=== PATIENT | male | born 1950 ===

== ENCOUNTER 2016-09-02 08:47 | Day surgery (SDC) | payer MEDICARE ==
[2016-09-02 10:13] VITALS: BMI 25.3
[2016-09-02 10:27] VITALS: TEMP 98
[2016-09-02] MEDS ORDERED: Propofol 10 mg/ml Inj (20 ML) ONE (13:02)
[2016-09-02 13:43] VITALS: O2SAT 100
[2016-09-02 13:57] VITALS: PULSE 58; RESP 15
[2016-09-02 14:26] VITALS: BP 125/93
== END 2016-09-02 14:23 | disposition home or self-care (01) ==
LOC: C.ENDO 08:47
PROVIDERS: ATTEND Internal Medicine Gastroenterology
DX: K64.8 Other hemorrhoids (principal)
CPT/HCPCS: 45378; J2704

== ENCOUNTER 2017-02-18 13:54 | Inpatient (IN) | payer MEDICARE ==
[2017-02-18 13:56] VITALS: BMI 25.8
[2017-02-18] MEDS ORDERED: cefTRIAXone IV 1 gm in Dextros 50 ML IVPB STA (15:44)
--- NOTE | 2017-02-18 15:51 | C.PDOC ---
History Of Present Illness Pt went for pre-op testing for elective hernia repair today. He was sent to the ED due to abnormal CXR. Time Seen by Provider: 02/18/17 14:50 Chief Complaint (Nursing): Cough, Cold, Congestion History Per: Patient Onset/Duration Of Symptoms: Days (3) Current Symptoms Are (Timing): Still Present Associated Symptoms: Sore Throat, Cough, Sputum, Nasal Congestion Severity: Moderate Additional History Per: Prior Records Past Medical History Reviewed: Historical Data, Nursing Documentation, Vital Signs Vital Signs: Last Vital Signs Temp 98.3 F 02/18/17 14:11 Pulse 81 02/18/17 14:11 Resp 16 02/18/17 14:11 BP 162/86 H 02/18/17 14:11 Pulse Ox 97 02/18/17 14:11 - Medical History PMH: Hypercholesterolemia, Hyperlipidemia (not on meds) Surgical History: Cholecystectomy, Endoscopy Family History: States: Unknown Family Hx - Social History Hx Tobacco Use: No Hx Alcohol Use: No Hx Substance Use: No - Immunization History Hx Tetanus Toxoid Vaccination: No Hx Influenza Vaccination: No Hx Pneumococcal Vaccination: No Review Of Systems Except As Marked, All Systems Reviewed And Found Negative. Constitutional: Negative for: Fever Respiratory: Positive for: Cough (3 days), Shortness of Breath (for years). Negative for: Hemoptysis Gastrointestinal: Negative for: Vomiting Musculoskeletal: Negative for: Neck Pain Skin: Negative for: Rash Neurological: Negative for: Weakness, Numbness Physical Exam - Physical Exam Appears: Non-toxic, No Acute Distress Skin: Normal Color, Warm, Dry, No Rash Head: Atraumatic, Normacephalic Eye(s): bilateral: Normal Inspection, PERRL, EOMI Neck: Normal ROM, Supple Cardiovascular: Rhythm Regular Respiratory: No Accessory Muscle Use, Rhonchi (right), Other (Bronchial breath sounds on left) Gastrointestinal/Abdominal: Soft, No Tenderness Back: No CVA Tenderness Extremity: Normal ROM Neurological/Psych: Oriented x3, Normal Speech, Normal Cognition, Normal Motor, Normal Sensation ED Course And Treatment O2 Sat by Pulse Oximetry: 97 Pulse Ox Interpretation: Normal - Radiology CXR: Viewed By Me, Read By Radiologist CXR Interpretation: Yes: Other (No residual pneumatized lung in left hill thorax. Please correlate with any prior surgical history. Cannot exclude complete atelectasis of left lung. No right-sided pulmonary infiltrate or pleural effusion.) Disposition Discussed With : Corie Chung Comment: She accepted pt on hospitalist service. Doctor Will See Patient In The: Hospital Counseled Patient/Family Regarding: Studies Performed, Diagnosis - Disposition Disposition: HOSPITALIZED Disposition Time: 15:55 Condition: STABLE - Clinical Impression Clinical Impression: Atelectasis of left lung, Lung density on x-ray
--- NOTE | 2017-02-18 17:00 | CT ---
CT chest without IV contrast Indication: Left lung complete atelectasis on CXR Technique: Contiguous axial images were obtained through the chest without intravenous contrast enhancement. Sagittal and coronal reconstructions were generated and reviewed. This CT exam was performed using 1 or more of the falling dose reduction techniques: Automated exposure control, adjustment of the MAA and/or kV according to patient size, and/or use of iterative reconstruction technique. Radiation dose (DLP): 350.25 MGy-cm. Comparison: Chest x-ray performed 02/18/17 Findings: Visualized portions of the inferior thyroid gland appear unremarkable. The unenhanced mediastinal and hilar vascular structures appear grossly unremarkable. The heart appears within normal limits of size. Tiny calcified mediastinal nodes. Dilated pulmonary arterial branches are noted proximally. Dilated main pulmonary artery measures approximately 4.4 cm which may correlate with pulmonary arterial hypertension. Correlate clinically. Mediastinal shift to the left. The patient is status post incomplete pneumonectomy. The left mainstem bronchus connects to small residual collapsed lung. Right upper lobe fibrous scarring evident. No pleural effusion. No pneumothorax. Numerous right-sided calcified granulomas. Limited visualization of the noncontrast upper abdomen demonstrates cholecystectomy clips. Punctate splenic calcifications, likely granulomas. Small hiatal hernia. Degenerative changes. Impression: Mediastinal shift to the left. The patient is status post incomplete pneumonectomy. The left mainstem bronchus connects to small residual collapsed lung. Right upper lobe fibrous scarring evident. Dilated pulmonary arterial branches are noted proximally. Dilated main pulmonary artery measures approximately 4.4 cm which may correlate with pulmonary arterial hypertension. Correlate clinically. Evidence of prior granulomatous infection.
[2017-02-18] MEDS ORDERED: Sodium Chloride 0.9% 1,000 ML IV SCH (17:45)
--- NOTE | 2017-02-18 17:46 | CP.PCM.HP ---
<Vickey Tariq - Last Filed: 02/18/17 22:29> Meds Allergies/Adverse Reactions: Allergies Allergy/AdvReac Type Severity Reaction Status Date / Time No Known Allergies Allergy Verified 09/02/16 10:08 Results - Vital Signs Recent Vital Signs: Last Vital Signs Temp 98.8 F 02/18/17 21:22 Pulse 78 02/18/17 21:22 Resp 20 02/18/17 21:22 BP 169/89 H 02/18/17 21:22 Pulse Ox 97 02/18/17 21:22 - Labs Labs: Laboratory Results - last 24 hr 02/18/17 02/18/17 15:21 15:23 PT 11.1 INR 1.0 APTT 28 Influenza Typ A,B (EIA) Negative for flu a/b Attending/Attestation - Attestation I have personally seen and examined this patient.: Yes I have fully participated in the care of the patient.: Yes I have reviewed all pertinent clinical information: Yes Notes (Text): This is a 66 years old male was brought in for evaluation of abnormal chest x ray.The chest x ray was done today for pre op evaluation for hernia repair.He denies chest pain,no shortness of breath.Has cough with clear sputum last 3 days.No fever.Has exertional dyspnea for many years. No recent changes in his breathing. He was told that his left lung doesn't oxygenate due a rare condition by his physician.His pulmonary physician is Dr Rodrick Caputo. He doedn't remember having a recent chest x ray .He denies using oxygen at home. Patient was sitting comfortable during examination.Saturating 99% in room air.Vitals stable.His trachea is slightly shifted to left.Has left sided bronchial breathing. Right lung has no rhonchi ,no wheezing.Abdomen soft and nontender.He is alert oriented X3. Patient's CT scan report noted.Case was discussed with Dr Carmichael Patient left lung atlectasis is likely chronic Message left to his pulmonary physician to discuss. We will admit him for observation /Tele observation I will start him on Zithromax to cover possible community acquired respiratory infection continue his home meds D/W Resident 02/18/17 22:12 <Cheryl Aguilar - Last Filed: 02/19/17 07:27> History of Present Illness - History of Present Illness History of Present Illness: CC: HPI: 66 year old male presented to ED for pre-op, for hernia repair scheduled for next week. Patient complained of cough for three days with no fever, but stated that the cough is chronic and gets worse when the weather changes. It is a productive cough with clear phlegm. Patient also complained of shortness of breath on exertion and intermittent headaches. Patient denied chest pain, palpitations, fever, chills, weight changes. 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 Jacey Vega Doctor Dr. 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.) - HEMATOLOGICAL/ONCOLOGICAL Hx Blood Transfusions: No - MUSCULOSKELETAL/RHEUMATOLOGICAL Hx Falls: No Hx Fractures: No - GASTROINTESTINAL Hx Gastrointestinal Disorders: No - PSYCHIATRIC Hx Substance Use: No - SURGICAL HISTORY Hx Cholecystectomy: Yes - ANESTHESIA Hx Anesthesia: Yes Hx Anesthesia Reactions: No Hx Malignant Hyperthermia: No Physical Exam - Head Exam Head Exam: ATRAUMATIC, NORMAL INSPECTION, NORMOCEPHALIC - Eye Exam Eye Exam: absent: Conjunctival injection, EOMI, Normal appearance, Periorbital swelling, Periorbital tenderness, Scleral icterus Additional comments: patient is blind in left eye - ENT Exam ENT Exam: Mucous Membranes Moist - Neck Exam Neck exam: Positive for: Full Rom. Negative for: Tenderness, Thyromegaly - Respiratory Exam Respiratory Exam: Decreased Breath Sounds (decreased breath sounds on left side) , NORMAL BREATHING PATTERN. absent: Accessory Muscle Use, Respiratory Distress Additional comments: no ronchi or wheezing of right lung. - Cardiovascular Exam Cardiovascular Exam: REGULAR RHYTHM, +S1, +S2. absent: Bradycardia, Tachycardia - GI/Abdominal Exam GI & Abdominal Exam: Soft. absent: Tenderness - Rectal Exam Rectal Exam: NORMAL INSPECTION - Extremities Exam Extremities exam: Positive for: full ROM, normal inspection. Negative for: pedal edema - Neurological Exam Neurological exam: CN II-XII Intact, Normal Gait, Oriented x3 - Psychiatric Exam Psychiatric exam: Normal Affect, Normal Mood - Skin Skin Exam: Dry, Normal Color, Warm Results - Vital Signs Recent Vital Signs: Last Vital Signs Temp 98.3 F 02/18/17 14:11 Pulse 83 02/18/17 17:37 Resp 18 02/18/17 17:37 BP 137/89 02/18/17 17:37 Pulse Ox 99 02/18/17 17:37 - Labs Labs: Laboratory Results - last 24 hr 02/18/17 02/18/17 15:21 15:23 PT 11.1 INR 1.0 APTT 28 Influenza Typ A,B (EIA) Negative for flu a/b Assessment & Plan - Assessment and Plan (Free Text) Assessment: Hernia Repair, 02/21 observation, telemetry BPH? Flomax 1mg POQD SOB, severe atelectasis of Left lung Fluticasone/Bjorn IH BID CT chest: severe atelectasis of left lung Pulm consult: Dr. Carmichael Arthritis Mobic 15mg POQD, held Prophylaxis GI Prophylaxis: Protonix 40mg POQD SCDs Pain: Tylenol 650mg POQ6H PRN Nausea Reglan 10mg IVP Q6H PRN Zofran 4mg IVP Q6H PRN Diet: heart Healthy diet discussed with Dr. Tariq - Date & Time Date: 02/18/17 Time: 19:48
[2017-02-18] MEDS ORDERED: Fluticasone-Salmeterol 250-50mcg Diskus INH SCH (20:00)
[2017-02-18 21:24] VITALS: RESP 20
--- NOTE | 2017-02-18 22:01 | CP.PCM.HP ---
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.) - HEMATOLOGICAL/ONCOLOGICAL Hx Blood Transfusions: No - MUSCULOSKELETAL/RHEUMATOLOGICAL Hx Falls: No Hx Fractures: No - GASTROINTESTINAL Hx Gastrointestinal Disorders: No - PSYCHIATRIC Hx Substance Use: No - SURGICAL HISTORY Hx Cholecystectomy: Yes - ANESTHESIA Hx Anesthesia: Yes Hx Anesthesia Reactions: No Hx Malignant Hyperthermia: No Meds Allergies/Adverse Reactions: Allergies Allergy/AdvReac Type Severity Reaction Status Date / Time No Known Allergies Allergy Verified 09/02/16 10:08 Results - Vital Signs Recent Vital Signs: Last Vital Signs Temp 98.8 F 02/18/17 21:22 Pulse 78 02/18/17 21:22 Resp 20 02/18/17 21:22 BP 169/89 H 02/18/17 21:22 Pulse Ox 97 02/18/17 21:22 - Labs Labs: Laboratory Results - last 24 hr 02/18/17 02/18/17 15:21 15:23 PT 11.1 INR 1.0 APTT 28 Influenza Typ A,B (EIA) Negative for flu a/b
[2017-02-18] MEDS ORDERED: Azithromycin 500mg/250ML NS 500 MG/250 ML BAG IVPB SCH (22:15)
[2017-02-19 08:30] LABS: BASO % 0.2 % (0.0-2.0); EOS # 0.2 K/uL (0.0-0.7); EOS % 2.8 % (0.0-4.0); HEMATOCRIT 38.8 % (35.0-51.0); LYMPH # 1.8 K/uL (1.0-4.3); LYMPH % 31.9 % (20.0-40.0); MEAN CELL VOLUME 86.8 fL (80.0-94.0); MEAN CORPUSCULAR HEMOGLOBIN 29.2 pg (27.0-31.0); MEAN CORPUSCULAR HGB CONC 33.7 g/dL (33.0-37.0); MONO # 0.8 K/uL (0.0-0.8); NRBC % 0.1 % (0.0-2.0); RED CELL DISTRIBUTION WIDTH 13.6 % (11.5-14.5); WHITE BLOOD COUNT 5.6 K/uL (4.8-10.8)
[2017-02-19 08:39] LABS: ALB/GLOB RATIO 1.3 (1.0-2.1); ALKALINE PHOSPHATASE 67 U/L (38-126); ALT/SGPT 48 U/L (21-72); AST/SGOT 30 U/L (17-59); BLOOD UREA NITROGEN 19 mg/dL (9-20); CALCIUM 8.2 mg/dl (8.6-10.4); CARBON DIOXIDE 31 mmol/L (22-30); CHLORIDE 102 mmol/L (98-107); CHOLESTEROL 185 mg/dL (0-199); GFR AFRICAN-AMERICAN > 60; GLUCOSE,RANDOM 92 mg/dL (75-110); POTASSIUM 4.2 mmol/L (3.6-5.2); SODIUM 139 mmol/L (132-148); TOTAL PROTEIN 6.4 g/dL (6.3-8.3)
[2017-02-19 09:36] VITALS: BP 151/88; PULSE 69; TEMP 97.9; O2SAT 98
[2017-02-19] MEDS ORDERED: Pantoprazole 40 mg EC Tab PO SCH (10:00)
[2017-02-19] MEDS ORDERED: Home Med 1 UNIT (Meloxicam [Mobic] 15 MG) PO SCH (10:00)
--- NOTE | 2017-02-19 15:37 | CP.PCM.DIS ---
Provider - Provider Date of Admission: 02/18/17 18:06 Attending physician: Vickey Tariq MD Primary care physician: Pulmonary - Dr. Mensah Surgery - Dr. Davidson Consults: Pulmonary - Dr. Carmichael Time Spent in preparation of Discharge (in minutes): 35 Diagnosis - Discharge Diagnosis (1) Atelectasis of left lung Status: Acute Comment: 02/[address] - mediastinal shift to the left. s/p incomplete pneumonectomy. left mainstem bronchus connects to small residual collapsed lung. RUL fibrous scarring evident. Dilated pulmonary arterial branches are noted proximally. Dilated main pulmonary artery measures approximately 4.4cm. Evidence of prior granulomatous infection (please see full report). Dr. Tariq spoke with Dr. Mensah, patient's crab meat processor, who says patient likely has chronic pulmonary problems and will need PFT outpatient before hernia repair surgery. Patient is aware. (2) Hernia Status: Acute Comment: postpone surgery until after PFTs (3) Obstructive uropathy Status: Acute Comment: Continue Flomax 0.4mg PO daily (4) Arthritis Status: Acute Comment: Use Mobic PRN Hospital Course - Lab Results Lab Results: Most Recent Lab Values WBC 5.6 K/uL (4.8-10.8) 02/19/17 08:12 RBC 4.46 Mil/uL (4.40-5.90) 02/19/17 08:12 Hgb 13.1 g/dL (12.0-18.0) 02/19/17 08:12 Hct 38.8 % (35.0-51.0) 02/19/17 08:12 MCV 86.8 fL (80.0-94.0) 02/19/17 08:12 MCH 29.2 pg (27.0-31.0) 02/19/17 08:12 MCHC 33.7 g/dL (33.0-37.0) 02/19/17 08:12 RDW 13.6 % (11.5-14.5) 02/19/17 08:12 Plt Count 241 K/uL (130-400) 02/19/17 08:12 MPV 8.0 fL (7.2-11.7) 02/19/17 08:12 Neut % (Auto) 51.1 % (50.0-75.0) 02/19/17 08:12 Lymph % (Auto) 31.9 % (20.0-40.0) 02/19/17 08:12 [place] % (Auto) 14.0 % (0.0-10.0) H 02/19/17 08:12 Eos % (Auto) 2.8 % (0.0-4.0) 02/19/17 08:12 Baso % (Auto) 0.2 % (0.0-2.0) 02/19/17 08:12 Neut # 2.8 K/uL (1.8-7.0) 02/19/17 08:12 Lymph # 1.8 K/uL (1.0-4.3) 02/19/17 08:12 [place] # 0.8 K/uL (0.0-0.8) 02/19/17 08:12 Eos # 0.2 K/uL (0.0-0.7) 02/19/17 08:12 Baso # 0.0 K/uL (0.0-0.2) 02/19/17 08:12 PT 11.1 SECONDS (9.7-12.2) 02/18/17 15:21 INR 1.0 02/18/17 15:21 APTT 28 SECONDS (21-34) 02/18/17 15:21 Sodium 139 mmol/L (132-148) 02/19/17 08:12 Potassium 4.2 mmol/L (3.6-5.2) 02/19/17 08:12 Chloride 102 mmol/L (98-107) 02/19/17 08:12 Carbon Dioxide 31 mmol/L (22-30) H 02/19/17 08:12 Anion Gap 10 (10-20) 02/19/17 08:12 BUN 19 mg/dL (9-20) 02/19/17 08:12 Creatinine 0.8 mg/dL (0.8-1.5) 02/19/17 08:12 Est GFR ( Amer) > 60 02/19/17 08:12 Est GFR (Non-Af Amer) > 60 02/19/17 08:12 Random Glucose 92 mg/dL (75-110) 02/19/17 08:12 Calcium 8.2 mg/dl (8.6-10.4) L 02/19/17 08:12 Total Bilirubin 1.0 mg/dL (0.2-1.3) 02/19/17 08:12 AST 30 U/L (17-59) 02/19/17 08:12 ALT 48 U/L (21-72) 02/19/17 08:12 Alkaline Phosphatase 67 U/L (38-126) 02/19/17 08:12 NT-Pro-B Natriuret Pep 103 pg/mL (0-900) 02/19/17 08:12 Total Protein 6.4 g/dL (6.3-8.3) 02/19/17 08:12 Albumin 3.6 g/dL (3.5-5.0) 02/19/17 08:12 Globulin 2.8 gm/dL (2.2-3.9) 02/19/17 08:12 Albumin/Globulin Ratio 1.3 (1.0-2.1) 02/19/17 08:12 Triglycerides 123 mg/dL (0-149) 02/19/17 08:12 Cholesterol 185 mg/dL (0-199) 02/19/17 08:12 LDL Cholesterol Direct 116 mg/dL (0-129) 02/19/17 08:12 HDL Cholesterol 37 mg/dL (30-70) 02/19/17 08:12 Influenza Typ A,B (EIA) Negative for flu a/b (NEGATIVE) 02/18/17 15:23 - Hospital Course Hospital Course: On admission: 66 year old male presented to ED for pre-op, for hernia repair scheduled for next week. Patient complained of cough for three days with no fever, but stated that the cough is chronic and gets worse when the weather changes. It is a productive cough with clear phlegm. Patient also complained of shortness of breath on exertion and intermittent headaches. Patient denied chest pain, palpitations, fever, chills, weight changes. 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 Jacey Vega Doctor Dr. Mensah [phone] Hospital course: Patient worked up for SOB. Chest CT showed mediastinal shift to the left. s/p incomplete pneumonectomy. left mainstem bronchus connects to small residual collapsed lung. RUL fibrous scarring evident. Dilated pulmonary arterial branches are noted proximally. Dilated main pulmonary artery measures approximately 4.4cm. Evidence of prior granulomatous infection (please see full report). Dr. Tariq spoke with Dr. Mensah, patient's crab meat processor, who says patient likely has chronic pulmonary problems (this is also what Dr. Carmichael, the in-house crab meat processor said) and will need PFTs outpatient before hernia repair surgery. Patient is aware. Patient should continue use of Breo and follow up with Dr. Mensah. Discharge Exam - Head Exam Head Exam: ATRAUMATIC, NORMAL INSPECTION, NORMOCEPHALIC - Eye Exam Eye Exam: EOMI - ENT Exam ENT Exam: Mucous Membranes Moist - Respiratory Exam Respiratory Exam: Rhonchi, NORMAL BREATHING PATTERN. absent: Accessory Muscle Use, Chest Wall Tenderness, Respiratory Distress - Cardiovascular Exam Cardiovascular Exam: REGULAR RHYTHM, +S1, +S2. absent: Gallop, Rubs, Systolic Murmur - GI/Abdominal Exam GI & Abdominal Exam: Normal Bowel Sounds, Soft. absent: Distended, Firm, Tenderness - Extremities Exam Extremities exam: normal capillary refill - Neurological Exam Neurological exam: Alert, CN II-XII Intact, Oriented x3 - Psychiatric Exam Psychiatric exam: Normal Affect, Normal Mood - Skin Skin Exam: Normal Color, Warm Discharge Plan - Discharge Medications Prescriptions: Azithromycin [Zithromax] 500 mg PO DAILY #4 tab Fluticasone/Vilanterol [Breo Ellipta 100-25 Mcg INH] 1 appl IH BID #1 blst.w.dev Tamsulosin HCl [Flomax] 1 cap PO BID #30 cap.er.24h - Follow Up Plan Condition: STABLE Disposition: HOME/ ROUTINE Instructions: Atelectasis (DC) Additional Instructions: Patient to be discharged home per Dr. Bhavana Tariq. Patient should resume all home medications AND take a newly prescribed antibiotic, Zithromax 500mg by mouth once a day for 4 days. Patient should make an appointment and follow up with Dr. Mensah, crab meat processor, next week. Patient should not get surgery for the hernia next week. Patient will need further testing of his lungs with Dr. Mensah before surgery. Patient should return to ED immediately if symptoms return or worsen. Google translate to mauritanian: El paciente ser dado de darlene por el Dr. Bhavana Tariq. El paciente debe reanudar todos los medicamentos del hogar Y william un antibitico recientemente recetado, Zithromax 500mg por va oral sobeida vez al da jose 4 stallings. El paciente debe hacer sobeida steph y hacer un seguimiento con el Dr. Mensah, neumlogo, la prxima semana. El paciente no debe someterse a sobeida ciruga para la hernia la prxima semana. El paciente necesitar ms pruebas de asa pulmones con el Dr. Mensah antes de la ciruga. El paciente debe regresar a la brandi de urgencias inmediatamente si los sntomas reaparecen o empeoran. Please print CT scan results for patient to bring to Dr. Mensah. Referrals: Smiley Mensah MD [Medical Doctor] -
[2017-02-20] MEDS ORDERED: Pneumococcal 23-Valent Vaccine IM ONE (10:00)
[2017-02-20] MEDS ORDERED: Influenza Vaccine 60 mcg/0.5 mL SYR (4YR UP) IM ONE (10:00)
== END 2017-02-19 12:50 | disposition home or self-care (01) | DRG 206 ==
LOC: C.ER 13:54 → C.9E 16:00 → INTOOBSV 16:00 → C.3T 17:27 → OBSVTOIN 18:06 → C.9E 18:06 → C.6T 20:20
PROVIDERS: ADMIT Internal Medicine; ATTEND Internal Medicine
DX: J98.11 Atelectasis (principal); N13.8 Other obstructive and reflux uropathy; M19.90 Unspecified osteoarthritis, unspecified site; N40.1 Benign prostatic hyperplasia with lower urinary tract symptoms